=== PATIENT | male | born 1955 | race Caucasian/White ===

== ENCOUNTER 2025-05-23 14:32 | Emergency (ER) | payer MEDICARE ==
[2025-05-23 14:56] LABS: #Basophils 0.0 thou/uL (0.0-0.2); #Eosinophils 0.0 thou/uL (0.0-0.7); #Lymphocytes 0.7 thou/uL (1.20-3.40); #Monocytes 0.4 thou/uL (0.11-0.59); #Neutrophils 5.3 thou/uL (1.40-6.50); %Basophils 0.7 % (0.0-1.0); %Eosinophils 0.3 % (0.0-10.0); %Lymphocytes 10.3 % (21.0-51.0); %Monocytes 5.6 % (0.0-10.0); %Neutrophils 83.1 % (42.0-75.0); Hematocrit 31.7 % (42.0-52.0); Hemoglobin 10.5 g/dL (14.0-18.0); Mean Corpuscular Hemoglobin 30.4 pg (27.0-31.0); Mean Corpuscular Volume 91.4 fl (78.0-98.0); Platelet Count 122 10x3/uL (130-400); Red Blood Cell (RBC) Count 3.46 mill/uL (4.70-6.10); White Blood Cell (WBC) Count 6.3 10x3/uL (4.8-10.8)
[2025-05-23 15:14] LABS: ALT (SGPT) 16 U/L (Less than 45); AST (SGOT) 47 U/L (11-34); Albumin 2.8 g/dL (3.1-4.5); Alkaline Phosphatase 152 U/L (40-110); Anion Gap 18 mmol/L (10-20); BUN (Urea Nitrogen) 17 mg/dL (8.4-25.7); Bilirubin, Total 0.6 mg/dL (0.3-1.2); Calc. Creatinine Clearance 0 mL/min (70-130); Calcium 11.1 mg/dL (7.8-10.44); Carbon Dioxide 23 mmol/L (23-31); Chloride 109 mmol/L (98-107); Globulin 2.8 g/dL (2.4-3.5); Glucose 111 mg/dL (83-110); Potassium 2.9 mmol/L (3.5-5.1); Sodium 147 mmol/L (136-145)
[2025-05-23] MEDS ORDERED: Potassium Chloride 20 MEQ (100 mL) BAG ONE (15:44)
[2025-05-23] MEDS ORDERED: Potassium Bicarbonate/Cit Ac 20 MEQ TAB ONE (15:44)
[2025-05-23 15:51] LABS: Magnesium 1.4 mg/dL (1.6-2.6)
[2025-05-23 16:51] LABS: Glucose, Urine (Dipstick) Negative (Negative); Leukocyte Negative (Negative); Protein, Urine (Dipstick) 30 mg/dL (Neg-Trace); Specific Gravity, Urine 1.020 (1.005-1.030)
[2025-05-23] MEDS ORDERED: Magnesium 2 GM/50 ML BAG (IN WATER) ONE (16:51)
[2025-05-23 16:52] LABS: CAUTI Indications for Culture Dysuria,urgency,freq; Mucous/LPF 1+ LPF (<2+); RBC/HPF 0-3 HPF (0-3); Urine Culture Reflex No No; WBC/HPF 0-3 HPF (0-3)
[2025-05-23] MEDS ORDERED: Dextrose 50% Abboject 50 ML SYRINGE ONE (17:25)
== END 2025-05-23 23:50 | disposition short-term general hospital (02) ==
LOC: MADERS 14:32
DX: E11.649 Type 2 diabetes mellitus with hypoglycemia without coma (principal); D64.9 Anemia, unspecified; E83.42 Hypomagnesemia; E87.6 Hypokalemia; E83.52 Hypercalcemia; E87.0 Hyperosmolality and hypernatremia; I10 Essential (primary) hypertension; E78.00 Pure hypercholesterolemia, unspecified; Z79.899 Other long term (current) drug therapy; Z79.84 Long term (current) use of oral hypoglycemic drugs; Z79.4 Long term (current) use of insulin; Z86.73 Personal history of transient ischemic attack (TIA), and cerebral infarction without residual deficits; Z79.82 Long term (current) use of aspirin
CPT/HCPCS: 70450; 74176; 80053; 81001; 82962; 83735; 85025; J3475; J3480; J7120; J7999; 36416; 51701; 96361; 96365; 96366; 96368; 96375